=== PATIENT | female | born 1965 | race Caucasian/White ===

== ENCOUNTER 2018-02-07 02:43 | Outpatient (CLI) | payer MEDICAID | END 2018-02-07 23:59 | disposition home or self-care (01) | LOC: DIABETIC 02:43 | PROVIDERS: ATTEND Family Medicine | DX: E10.65 Type 1 diabetes mellitus with hyperglycemia (principal); Z79.899 Other long term (current) drug therapy | CPT/HCPCS: G0108 ==

== ENCOUNTER 2018-04-04 03:00 | Outpatient (CLI) | payer MEDICAID | END 2018-04-04 23:59 | disposition home or self-care (01) | LOC: DIABETIC 03:00 | PROVIDERS: ATTEND Family Medicine | DX: E11.65 Type 2 diabetes mellitus with hyperglycemia (principal); Z79.899 Other long term (current) drug therapy | CPT/HCPCS: G0108 ==

== ENCOUNTER 2023-08-25 13:31 | Outpatient (CLI) | payer MEDICAID | END 2023-08-25 23:59 | disposition home or self-care (01) | LOC: RAD 13:31 | PROVIDERS: ATTEND Pediatrics Sports Medicine | DX: M47.816 Spondylosis without myelopathy or radiculopathy, lumbar region (principal); M48.061 Spinal stenosis, lumbar region without neurogenic claudication; M25.78 Osteophyte, vertebrae; N20.0 Calculus of kidney; M54.50 Low back pain, unspecified; M46.1 Sacroiliitis, not elsewhere classified; M79.10 Myalgia, unspecified site; Z72.0 Tobacco use | CPT/HCPCS: 72131 ==